=== PATIENT | female | born 1970 | race Caucasian/White ===

== ENCOUNTER 2017-06-02 15:02 | Emergency (ER) | payer OTHER ==
[2017-06-02 15:34] VITALS: RESP 20
--- NOTE | 2017-06-02 15:57 | ED ---
General Adult HPI - General Chief complaint: Skin/Abscess/Foreign Body Stated complaint: Abcess on Neck Time Seen by Provider: 06/02/17 15:41 Source: patient, RN notes reviewed Mode of arrival: ambulatory Limitations: no limitations - History of Present Illness Initial comments: 47-year-old female presents to the emergency Department today for a chief complaint of redness on the back of the neck. Patient states this has been going on for about 3 days. Patient states the area is painful to touch. Patient denies any pain with movement of the neck. Patient states it has not gotten worse in the past 3 days that has not gotten better either. Patient denies any fevers or chills at home. Patient denies taking any Tylenol or Motrin. Patient states she could not get into her primary care doctor today so she came to the emergency department. Patient denies any recent illnesses or medical problems. Patient denies any known ALLERGIES. - Related Data Previous Rx's Medication Instructions Recorded Amoxicillin/Potassium Clav 1 tab PO Q12HR 10 Days tab 06/02/17 [Augmentin Xr 1,000-62.5 Tab] Allergies Allergy/AdvReac Type Severity Reaction Status Date / Time No Known Allergies Allergy Verified 06/02/17 15:34 Review of Systems ROS Statement: Those systems with pertinent positive or pertinent negative responses have been documented in the HPI. ROS Other: All systems not noted in ROS Statement are negative. Past Medical History Past Medical History: Hyperlipidemia, Hypertension History of Any Multi-Drug Resistant Organisms: None Reported Additional Past Surgical History / Comment(s): tailbone Past Psychological History: ADD/ADHD, Anxiety, Bipolar, Depression Smoking Status: Current every day smoker Past Alcohol Use History: None Reported Past Drug Use History: Marijuana General Exam Limitations: no limitations Head exam: Present: atraumatic, normocephalic, normal inspection Eye exam: Present: normal appearance, PERRL, EOMI. Absent: scleral icterus, conjunctival injection, periorbital swelling ENT exam: Present: normal exam, normal oropharynx, mucous membranes moist, TM's normal bilaterally Neck exam: Present: tenderness (Affected area is tender to palpation.), full ROM (Patient has full range of motion of the neck.), other (There is a 3 x 3 cm area of erythema and induration on the posterior neck. No streaking redness present. No abscess or fluctuant area palpated for drainage. No draining from the wound.). Absent: meningismus, lymphadenopathy (No lymphadenopathy palpated of the anterior or posterior cervical lymph nodes.), thyromegaly Respiratory exam: Present: normal lung sounds bilaterally. Absent: respiratory distress, wheezes, rales Cardiovascular Exam: Present: regular rate, normal rhythm, normal heart sounds. Absent: systolic murmur, diastolic murmur, rubs, gallop, clicks Course Vital Signs 06/02/17 15:32 Temperature 97.8 F Pulse Rate 71 Respiratory 20 Rate Blood Pressure 170/79 O2 Sat by Pulse 97 Oximetry Medical Decision Making - Medical Decision Making 47-year-old female says to the emergency department for a chief complaint of redness on the posterior neck. This has been going on for 3 days. Patient states it is tender to touch. Patient states it has not spread over the past 3 days but has not improved either. Patient denies any fevers or chills. On exam there is a 3 x 3 cm area of erythema and induration. There is no abscess or fluctuant area noted for drainage. Patient is advised to take Augmentin and use warm compresses. She is to follow up with primary care in 1-2 days. Patient is aware that she is to return to the emergency Department if she notices worsening symptoms, spreading redness, or begins having fevers. Disposition Clinical Impression: Cellulitis Disposition: HOME SELF-CARE Condition: Good Instructions: Cellulitis (ED), Warm Compress or Soak (ED) Additional Instructions: Please take Augmentin as directed. Please use warm compresses. Please return to the emergency department if you notice worsening symptoms, spreading redness , or spiking fevers. Please follow-up with primary care provider in one to 2 days. Prescriptions: Amoxicillin/Potassium Clav [Augmentin Xr 1,000-62.5 Tab] 1 tab PO Q12HR 10 Days tab Referrals: Carmen Vásquez MD [Primary Care Provider] - 1-2 days Time of Disposition: 15:57
[2017-06-02] MEDS ORDERED: ACETAMINOPHEN TAB 500 MG TAB PO STA (16:00)
[2017-06-02] MEDS ORDERED: AMOXIC-POT CLAV 875-125MG 1 EACH TAB PO STA (16:03)
[2017-06-02 16:18] VITALS: BP 160/78; PULSE 72; TEMP 98.2
== END 2017-06-02 16:15 | disposition home or self-care (01) ==
LOC: EC 15:02
DX: L03.221 Cellulitis of neck (principal); F17.200 Nicotine dependence, unspecified, uncomplicated
CPT/HCPCS: 99282